=== PATIENT | female | born 1955 | race Caucasian/White ===

== ENCOUNTER 2017-01-27 08:47 | Inpatient (IN) | payer BC, OTHER ==
[2017-01-16 15:04] VITALS: BMI 46.0
--- NOTE | 2017-01-16 15:51 | PAT Medication Instructions ---
Service Date Jan 16, 2017. Current Home Medication List Acetaminophen (Tylenol), 325 MG PO Q6 PRN for Pain Calcium (Calcium), 500 MG PO QPM Cholecalciferol (Vitamin D3), 1 TAB PO BID Fexofenadine-Pseudoephedrine (Sondra-D 12 Hour Allergy), 1 TAB PO HS Glucosamine Sulfate (Glucosamine), Unknown Dose PO BID Hydrochlorothiazide (Hydrochlorothiazide), 12.5 MG PO QAM Multivitamin (Multivitamin), 1 TAB PO QAM Omeprazole (Prilosec), 20 PO QAM Probiotic Product (Acidophilus), 1 CAP PO BID Ranitidine Hcl (Zantac 150 Maximum Streng), 1 TAB PO BID Vitamin B Complex (Vitamin B Complex), 1 TAB PO QAM [Fiber Capsule ], 1 DOSE PO BID [Potassium ], 1 CAP PO BID Medication Instructions For Your Scheduled Surgery - Hold the following medications from tomorrow until after surgery: Glucosamine Sulfate (Glucosamine), Unknown Dose PO BID - Hold the following medications the morning of surgery: Cholecalciferol (Vitamin D3), 1 TAB PO BID [Fiber Capsule ], 1 DOSE PO BID [Potassium ], 1 CAP PO BID Hydrochlorothiazide (Hydrochlorothiazide), 12.5 MG PO QAM Probiotic Product (Acidophilus), 1 CAP PO BID Multivitamin (Multivitamin), 1 TAB PO QAM Vitamin B Complex (Vitamin B Complex), 1 TAB PO QAM - Take the following medications the morning of surgery with a sip of water: Omeprazole (Prilosec), 20 PO QAM Ranitidine Hcl (Zantac 150 Maximum Streng), 1 TAB PO BID Acetaminophen (Tylenol), 325 MG PO Q6 PRN for Pain (if needed up to 4 hours before surgery) - Take the following medications as scheduled the night before surgery: Calcium (Calcium), 500 MG PO QPM Cholecalciferol (Vitamin D3), 1 TAB PO BID Fexofenadine-Pseudoephedrine (Sondra-D 12 Hour Allergy), 1 TAB PO HS [Fiber Capsule ], 1 DOSE PO BID [Potassium ], 1 CAP PO BID Ranitidine Hcl (Zantac 150 Maximum Streng), 1 TAB PO BID Probiotic Product (Acidophilus), 1 CAP PO BID Acetaminophen (Tylenol), 325 MG PO Q6 PRN for Pain If you have any questions please call us at [phone] or [phone] or [phone]
[2017-01-16 16:57] LABS: BASO % 0.3 %; BASO ABS # 0.03 K/uL (0-0.2); COMPLETE YES; EOS % 1.9 %; HEMATOCRIT 38.3 % (37-47); IG% 0.3 %; LYMPH % 18.6 %; LYMPH ABS # 2.17 K/uL (1.2-3.4); MEAN CELL VOLUME 80.5 fL (80-100); MEAN CORPUSCULAR HEMOGLOBIN 25.8 pg (25-34); MEAN CORPUSCULAR HGB CONC 32.1 g/dl (32-36); MEAN PLATELET VOLUME 11.8 fL (7.4-10.4); NEUT % 70.9 %; PLATELET COUNT 290 K/uL (130-400); RED BLOOD COUNT 4.76 M/uL (4.2-5.4); WHITE BLOOD COUNT 11.68 K/uL (4.8-10.8)
[2017-01-16 17:04] LABS: BUN/CREATININE RATIO 12.8 (10-20); CALCIUM 8.5 mg/dl (8.5-10.1); CREATININE 0.89 mg/dl (0.60-1.20); POTASSIUM 3.5 mmol/L (3.5-5.1)
[~2017-01-27] VITALS: Ht 175.3 cm; Wt 142.1 kg
[~2017-01-27 08:47] MED LIST: ACET-1311 PO; CALC1CAP24 PO; CEFAZOLIN 3000 MG/65 ML D5W 50 ML IV SCH; CHOL1000 PO; FEXO5TAB2 PO; FIBER CAPSULE PO; GLUC10007 PO; HYDR25TA5 PO; LACTATED RINGER'S 1000ML 1,000 ML IV SCH; MULT-506 PO; OMEP20CA59 PO; POTASSIUM PO; PROB1CAP54 PO; RANITAB6 PO; VITBC PO
[2017-01-27] MEDS ORDERED: LIDOCAINE HCL 2% 2 ML VIAL (20MG/ML) ONE (09:50)
[2017-01-27] MEDS ORDERED: GLYCOPYRROLATE INJ 0.2 MG/ML VIAL ONE (09:50)
[2017-01-27] MEDS ORDERED: DEXAMETHASONE SOD INJ 4 MG/ML VIAL ONE ×2 (09:50→14:35)
[2017-01-27] MEDS ORDERED: SUCCINYLCHOLINE CHLORIDE 20 MG/ML 10 ML VIAL IV ONE (09:50)
[2017-01-27] MEDS ORDERED: EpHEDrine SULFATE INJ 50 MG/ML AMP ONE (09:50)
[2017-01-27] MEDS ORDERED: NEOSTIGMINE METHYLSULFATE 5 MG/5 ML SYR ONE (09:50)
[2017-01-27] MEDS ORDERED: PROPOFOL IV EMULSION 10 MG/ML 20 ML VIAL IV ONE (09:50)
[2017-01-27] MEDS ORDERED: ONDANSETRON INJ 2 MG/ML 2 ML VIAL ONE ×2 (09:50→14:35)
[2017-01-27] MEDS ORDERED: PHENYLEPHRINE HCL INJ 10 MG/ML VIAL ONE (09:50)
[2017-01-27] MEDS ORDERED: MIDAZOLAM HCL 1 MG/ML 2ML VIAL ONE (09:51)
[2017-01-27] MEDS ORDERED: FENTANYL CITRATE INJ 50 MCG/1 ML 2 ML VIAL ONE ×3 (09:51→13:21)
[2017-01-27 09:54] VITALS: BP 152/80; PULSE 71; TEMP 36.9; O2SAT 99; Ht 175.3 cm; Wt 142.1 kg
[2017-01-27] MEDS ORDERED: FENTANYL CITRATE INJ 50 MCG/1 ML 2 ML VIAL IV PRN (10:00)
[2017-01-27] MEDS ORDERED: PROMETHAZINE HCL INJ 12.5 MG in SODIUM CHLORIDE 0.9% 50ML 50 ML IV PRN (10:00)
[2017-01-27] MEDS ORDERED: ATROPINE SULFATE 0.1 MG/ML 5ML SYR IV PRN (10:00)
[2017-01-27] MEDS ORDERED: ONDANSETRON INJ 2 MG/ML 2 ML VIAL IV PRN ×2 (10:00→14:45)
[2017-01-27] MEDS ORDERED: LABETALOL HCL IV 5 MG/ML 20ML IV PRN (10:00)
[2017-01-27] MEDS ORDERED: HYDROmorphone INJ 1 MG/ML SYR IV PRN (10:00)
[2017-01-27] MEDS ORDERED: PHENYLEPHRINE 100MCG/ML 5ML SYR IV PRN (10:00)
[2017-01-27] MEDS ORDERED: EpHEDrine SULFATE INJ 50 MG/ML AMP IV PRN (10:00)
--- NOTE | 2017-01-27 10:23 | History & Physical Bridge Note ---
H&P Re-Evaluation Bridge Note: I have examined the patient, reviewed the History & Physical and in the interval since the performance of the History & Physical I have noted the following changes of clinical significance: No changes noted
[2017-01-27 10:37] LABS: BASO % 0.4 %; BASO ABS # 0.03 K/uL (0-0.2); EOS % 2.6 %; HEMATOCRIT 38.6 % (37-47); IG% 0.2 %; LYMPH ABS # 2.01 K/uL (1.2-3.4); MEAN CELL VOLUME 80.6 fL (80-100); MEAN CORPUSCULAR HEMOGLOBIN 25.7 pg (25-34); MEAN PLATELET VOLUME 11.3 fL (7.4-10.4); MONO % 8.5 %; NEUT % 64.3 %; PLATELET COUNT 263 K/uL (130-400); RED BLOOD COUNT 4.79 M/uL (4.2-5.4); WHITE BLOOD COUNT 8.39 K/uL (4.8-10.8)
[2017-01-27] MEDS: LACTATED RINGER'S 1000ML 1,000 ML IV SCH ×2 (10:39→17:36)
[2017-01-27 10:53] LABS: COMPLETE YES; MEAN CORPUSCULAR HGB CONC 31.9 g/dl (32-36)
[2017-01-27] MEDS ORDERED: METHYLENE BLUE 0.5% 10 ML VIAL ONE (10:55)
[2017-01-27] MEDS ORDERED: MINERAL OIL LIGHT 10 ML BTL ONE (10:55)
[2017-01-27] MEDS ORDERED: BUPIVACAINE 0.5 % 5 MG/1 ML MPF 30ML VIAL ONE (10:55)
[2017-01-27] MEDS ORDERED: HYDROmorphone INJ 2 MG/ML SYR/VIAL ONE (11:44)
[2017-01-27] MEDS ORDERED: KETOROLAC TROMETHAMINE 30 MG/ML VIAL ONE (14:35)
--- NOTE | 2017-01-27 14:43 | [facility] Post Operative Brief Note ---
Immediate Operative Summary Operative Date Jan 27, 2017. Pre-Operative Diagnosis Post Menopausal bleeding, Complex hyperplasia with atypia Post-Operative Diagnosis Post Menopausal bleeding, Complex hyperplasia with atypia, abdominal wall lesion Procedure(s) Performed Total Laparoscopic Hysterectomy with Bilateral Salpingo-Oophorectomy; Cystoscopy, removal of abdominal skin lesion Surgeon Dr. Kevin Aguilera [place] [employer] Operator Surgeon(s) Dr. Lazaro Krishnan Estimated Blood Loss 25mL Findings On laparoscopic exam uterus, bilateral tubes and ovaries grossly normal. No intraabdominal or pelvic pathology noted. The cervix, uterus and bilateral tubes and ovaries were successfully removed laparoscopically. Once the specimen was removed from the vagina anesthesia was instructed to push methylene blue. The vaginal cuff was closed and a cystoscopy was performed. Upon cystoscopic exam the bladder was intact and bilateral ureteral openings spilled blue tinged urine indicating bilateral ureters were intact. There was a condylomatous lesion on the lower abdomen which was excised with an elliptical incision and sent to pathology. Patient tolerated the surgery well and was sent to recovery with stable vital signs. Fluids (cc crystalloids) 1700 Specimens A: Uterus, Cervix, Bilateral Fallopian Tubes, Bilateral Ovaries B: Abdominal skin Lesion Drains Batres to gravity Anesthesia General Complication(s) None Disposition Recovery Room / PACU
[2017-01-27] MEDS ORDERED: MAGNESIUM HYDROXIDE SUSP 30 ML UDC PO PRN (14:45)
[2017-01-27] MEDS ORDERED: BISACODYL 10 MG SUPP PR PRN (14:45)
[2017-01-27] MEDS ORDERED: IBUPROFEN 600 MG TAB PO PRN (14:45)
[2017-01-27] MEDS ORDERED: MEPERIDINE HCL 50 MG/ML CARP IV PRN ×2 (14:45)
[2017-01-27] MEDS ORDERED: SENNA 8.6 MG TAB PO PRN (14:45)
[2017-01-27] MEDS ORDERED: KETOROLAC TROMETHAMINE 30 MG/ML VIAL IV. PRN (14:45)
--- NOTE | 2017-01-27 16:18 | Anesthesiology Progress Note ---
Anesthesia Post Op Note Date & Time Jan 27, 2017 at 16:18 Vital Signs Pain Intensity: 0 Vital Signs Past 12 Hours Date Time Temp Pulse Resp B/P (MAP) Pulse Ox O2 Delivery O2 Flow Rate FiO2 01/27/17 16:06 145/95 01/27/17 16:04 67 14 01/27/17 16:04 65 14 100 01/27/17 16:03 36.4 76 16 145/95 100 Nasal Cannula 2 01/27/17 16:01 135/77 01/27/17 15:59 71 14 01/27/17 15:59 71 14 100 01/27/17 15:56 138/85 01/27/17 15:54 77 14 94 01/27/17 15:54 77 14 01/27/17 15:53 81 15 01/27/17 15:53 81 15 90 01/27/17 15:51 158/94 01/27/17 15:48 75 15 96 01/27/17 15:48 75 15 01/27/17 15:46 154/79 01/27/17 15:43 70 12 95 01/27/17 15:43 69 12 01/27/17 15:41 155/84 01/27/17 15:38 86 17 01/27/17 15:38 91 17 96 01/27/17 15:36 138/101 01/27/17 15:33 70 15 96 01/27/17 15:33 71 15 01/27/17 15:32 73 17 01/27/17 15:32 73 17 97 01/27/17 15:31 141/90 01/27/17 15:27 73 16 96 01/27/17 15:27 73 16 01/27/17 15:26 138/98 01/27/17 15:22 78 13 97 01/27/17 15:22 78 13 01/27/17 15:21 138/103 01/27/17 15:18 142/70 01/27/17 15:17 77 16 01/27/17 15:17 36.3 84 16 142/70 (97) 96 Mask 10 01/27/17 15:17 77 16 96 01/27/17 09:54 36.9 71 18 152/80 (104) 99 Room Air Notes Mental Status: alert / awake / arousable, participated in evaluation Pt Amnestic to Procedure: Yes Nausea / Vomiting: adequately controlled Pain: adequately controlled Airway Patency, RR, SpO2: stable & adequate BP & HR: stable & adequate Hydration State: stable & adequate Anesthetic Complications: no major complications apparent
[2017-01-27 16:45] VITALS: BP 138/78; PULSE 60; TEMP 36.5; O2SAT 100
[2017-01-27 17:15] VITALS: BP 130/67; PULSE 73; TEMP 36.3; O2SAT 94
[2017-01-27 17:45] VITALS: BP 131/79; PULSE 69; TEMP 36.3; O2SAT 96
[2017-01-27] MEDS ORDERED: LACTATED RINGER'S 1000ML 1,000 ML IV SCH (17:45)
[2017-01-27 18:45] VITALS: BP 134/84; PULSE 65; TEMP 36.4; O2SAT 97
[2017-01-27 19:32] LABS: HEMATOCRIT 39.5 % (37-47)
[2017-01-27 19:35] VITALS: BP 143/66; PULSE 71; TEMP 36.3; O2SAT 97
--- NOTE | 2017-01-27 21:08 | OPERATIVE REPORT ---
DATE OF OPERATION: 01/27/2017 PREOPERATIVE DIAGNOSES: 1. Postmenopausal bleeding. 2. Complex hyperplasia with atypia. POSTOPERATIVE DIAGNOSES: 1. Postmenopausal bleeding. 2. Complex hyperplasia with atypia. 3. Abdominal wall lesion. OPERATIVE PROCEDURE: Total laparoscopic hysterectomy with bilateral salpingo-oophorectomy, cystoscopy and removal of abdominal skin lesion. SURGEON: Dr. Aguilera. AWNING MAKER AND INSTALLER: Dr. Krishnan. ANESTHESIA: General. ESTIMATED BLOOD LOSS: 25 mL. IV FLUIDS: 1700 mL crystalloids. URINE OUTPUT: 200 mL clear yellow urine. SPECIMENS: Uterus, cervix, bilateral fallopian tubes and ovaries and abdominal skin lesion. DRAINS: Batres to gravity. COMPLICATIONS: None. DISPOSITION: To recovery room. OPERATIVE FINDINGS: On laparoscopic exam, uterus, bilateral tubes and ovaries were grossly normal. There was no intra-abdominal or pelvic pathology grossly seen. The cervix, uterus and bilateral tubes and ovaries were successfully removed laparoscopically with specimen was removed from the vagina. Anesthesia was instructed to push methylene blue. The vaginal cuff was then closed and a cystoscopy was then performed. Upon cystoscopic exam, the bladder was intact with no suture noted as well. Bilateral ureteral openings expelled blue-tinged urine, indicating bilateral ureters were intact. Once the hysterectomy was completed, there was a condylomatous lesion on the lower abdomen, which was excised with an elliptical incision and sent to pathology. The patient tolerated the procedure well and was sent to recovery with stable vital signs. OPERATIVE PROCEDURE IN DETAIL: The patient was taken to the operating room where general anesthesia was administered. Once anesthesia was found to be adequate, the patient was placed in dorsal lithotomy position and was prepped and draped in a manner appropriate for the procedure. A weighted speculum was then placed into the vagina and the anterior lip of the cervix was grasped with a single tooth tenaculum. A medium VCare uterine manipulator was then placed within the uterus in an anteverted fashion and was suture ligated to the cervix at the 12 o'clock and 6 o'clock position with 0 Vicryl suture. Once to the VCare in place, the weighted speculum and single tooth tenaculum were removed from the vagina. A sterile Batres catheter was placed within the bladder and remained indwelling throughout the entire procedure. The patient was then readied for the laparoscopic portion of the procedure. Attention was directed towards the abdomen where 0.5% Marcaine was injected below the umbilicus and an 11-mm skin incision was made subumbilically in a horizontal fashion. A Veress needle was then placed within the abdomen. Normal saline was injected with no fecal content aspirated. Pneumoperitoneum was then created. The Veress needle was then removed and an 11 mm trocar was placed within the abdomen under direct laparoscopic visualization. The patient was then placed in a Trendelenburg position. The bowel was displaced superiorly away from the pelvis. A second 11 mm skin incision was made on the left side of the abdomen and a second 11 mm trocar was placed within the abdomen under direct laparoscopic visualization. A third 11 mm skin incision was made on the right side of the abdomen and a third 11 mm trocar was placed within the abdomen under direct laparoscopic visualization. A thorough examination of the abdomen and pelvis was then performed. Attention was directed towards the right adnexa where the infundibulopelvic ligament was cauterized and transected, continued inferiorly through to the broad ligament and round ligament, cauterized and transected as we continued inferiorly. The anterior leaf of the broad ligament was and the bladder flap created on the right side of the lower uterine segment. Attention was then directed towards the left adnexa which likewise the left infundibulopelvic ligament was cauterized and transected, continued inferiorly through the broad ligament and round ligament. The broad ligament was and the anterior leaf of the broad ligament was cauterized and transected across the lower uterine segment, completing the bladder flap. The bladder was pushed away from the lower uterine segment. The ascending uterine arteries were cauterized and transected bilaterally, continued inferiorly through the cardinal uterosacral complex. Once we were at the level of the VCare manipulator, the specimen was amputated from the vagina in a circumferential fashion with the LigaSure. The uterus, cervix and bilateral fallopian tubes and ovaries were then removed through the vagina. A sterile glove was then placed in the vagina to maintain the pneumoperitoneum. The entire pelvis was then copiously irrigated with warm saline solution. Anesthesia was instructed to push methylene blue. The vaginal cuff was then closed with 0 Polysorb suture with the EndoStitch in a continuous locking fashion. The peritoneum was then reapproximated with 0 Polysorb suture in continuous running fashion. The entire pelvis was again noted to be hemostatic. At this point, all instruments were then removed from the abdomen and as much CO2 gas was allowed to percolate through open cannulas. The patient was then ready for the cystoscopy. Attention was directed towards the perineum where the Batres catheter was removed. The cystoscope was introduced into the bladder. A thorough examination was then performed noting no injury to the bladder wall. It was noted that Bilateral ureteral openings expelled blue-tinged urine, indicating bilateral ureters were intact. At this point, the cystoscope was removed and a second sterile Batres catheter was placed within the bladder. At this point, the procedure was found to be complete. The cannulas were then removed from the abdomen. The fascial all 3 skin incisions were closed with 0 Vicryl suture in an interrupted [id number] fashion. All 3 incisions were then closed with 4-0 Monocryl in a subcuticular fashion. Attention was then directed towards the lower abdominal skin lesion which was grasped with pickups and an elliptical incision was made around the lesion. The lesion was then removed with scissors and sent to pathology. The subcutaneous tissue was reapproximated with 2-0 Vicryl suture in a continuous running fashion. The skin was then closed with 4-0 Monocryl in a subcuticular fashion. Excellent hemostasis was noted. The sterile glove was removed from the vagina. All sponge and instrument counts were found to be correct x2. The patient tolerated the procedure well and was sent to recovery with stable vital signs. I attest to the content of the Intraoperative Record and any orders documented therein. Any exception s are noted below.
[2017-01-27] MEDS: RANITIDINE HCL 150 MG TAB PO SCH (21:25)
[2017-01-28 00:10] VITALS: BP 120/62; PULSE 89; TEMP 36.7; O2SAT 95
[2017-01-28] MEDS: OXYCODONE/ACETAMINOPHEN 5-325 TAB PO PRN ×2 (01:25→07:32)
[2017-01-28 04:15] VITALS: BP 110/56; PULSE 85; TEMP 36.9; O2SAT 95
[2017-01-28 07:05] LABS: HEMATOCRIT 36.2 % (37-47); MEAN CORPUSCULAR HEMOGLOBIN 26.2 pg (25-34); MEAN CORPUSCULAR HGB CONC 32.3 g/dl (32-36); MEAN PLATELET VOLUME 11.9 fL (7.4-10.4); PLATELET COUNT 276 K/uL (130-400); RED BLOOD COUNT 4.47 M/uL (4.2-5.4); WHITE BLOOD COUNT 22.65 K/uL (4.8-10.8)
[2017-01-28 07:19] LABS: BUN/CREATININE RATIO 12.5 (10-20); CALCIUM 8.4 mg/dl (8.5-10.1); CREATININE 0.79 mg/dl (0.60-1.20); POTASSIUM 4.1 mmol/L (3.5-5.1)
[2017-01-28 07:23] VITALS: BP 122/57; PULSE 80; TEMP 36.9; O2SAT 96
[2017-01-28 08:07] LABS: COMPLETE YES; IG% 0.5 %; LYMPH % 5.2 %; LYMPH ABS # 1.18 K/uL (1.2-3.4); MONO % 6.5 %; NEUT % 87.8 %
[2017-01-28] MEDS: RANITIDINE HCL 150 MG TAB PO SCH (08:39)
[2017-01-28] MEDS ORDERED: FEXOFENADINE 60MG/PSEUDOEPHEDRINE 120MG TAB PO SCH (09:00)
[2017-01-28] MEDS ORDERED: HYDROCHLOROTHIAZIDE 25 MG TAB PO SCH (09:00)
[2017-01-28] MEDS ORDERED: MULTIVITAMIN TAB PO SCH (09:00)
[2017-01-28] MEDS ORDERED: PANTOprazole SOD 40 MG TAB PO SCH (09:00)
[2017-01-28] MEDS ORDERED: VITAMIN B COMPLEX TAB PO SCH (09:00)
[2017-01-28] MEDS ORDERED: OXYC-57 PO (10:20)
[2017-01-28] MEDS ORDERED: MTR600X PO (10:20)
--- NOTE | 2017-01-28 10:22 | Discharge Instructions ---
Discharge Instructions Date of Service Jan 28, 2017. Admission Reason for Admission: Complex Hyperplasia W/Atypia, Post-Menopausal Blee Discharge Discharge Diagnosis / Problem: atypical hyperplasia Discharge Goals Goal(s): Routine recovery after surgery Activity Recommendations Activity Limitations: as noted below Lifting Limitations: no more than 10 pounds Exercise/Sports Limitations: until after follow-up appointment May Resume Sexual Activity: after follow-up appointment Shower/Bathe: no limitations Driving or Machine Use: resume 3 days after discharge . Instructions / Follow-Up Instructions / Follow-Up ACTIVITY RECOMMENDATIONS: * Avoid tampons, douching, hot tubs, pools, and intercourse until bleeding has stopped. * May shower as usual. * No strenuous activity for 24-48 hours. After 24-48 hours, you can do anything you feel like doing (driving and sports are okay). RETURN TO SCHOOL/WORK: * You may return to school or work after 24 hours unless specified by your physician. DIET: * Resume previous diet. MEDICATIONS: Resume previous medications unless instructed otherwise by your surgeon. Ibuprofen 200mg 2-3 tablets every 4-6 hours as needed --OR-- Aleve 2 tablets every 8-12 hours as needed for post-operative discomfort Medications are over the counter. Tylenol may be used if above medications are contraindicated or not preferred. Medication should be taken with food or milk. do not take on an empty stomach. SPECIAL CARE INSTRUCTIONS: * Check temperature twice daily for one week. Report any elevation over 101 degrees. * Call office if you experience increased pelvic pain or discomfort not relieved by pain medicine, if you have foul smelling vaginal discharge, if you have bleeding that is heavier than a normal menstrual flow. If you are changing a maxi pad every 1- 2 hours, this is too heavy. vaginal spotting is normal for 1-2 weeks. FOLLOW UP VISIT: Call your doctor's office for a post-operative visit. Current Hospital Diet Patient's current hospital diet: Regular Diet Discharge Diet Recommended Diet: Regular Diet Fluid Restriction: None Procedures Procedures Performed: Total Laparoscopic Hysterectomy with Bilateral Salpingo-Oophorectomy; Cystoscopy, removal of abdominal skin lesion Pending Studies Studies pending at discharge: no Medical Emergencies . Who to Call and When: Medical Emergencies: If at any time you feel your situation is an emergency, please call 911 immediately. . Non-Emergent Contact Non-Emergency issues call your: Primary Care Provider . . "Provider Documentation" section prepared by Krishan Oliva. . VTE Core Measure Inpt VTE Proph given/why not?: Treatment not indicated
--- NOTE | 2017-01-28 10:54 | Surgery Progress Note ---
Surgery Progress Note Date of Service Jan 28, 2017. Subjective Post OP Day: 1 + feeling well, + ambulating, + pain controlled, + diet Objective Vital Signs: Date Time Temp Pulse Resp B/P (MAP) Pulse Ox O2 Delivery O2 Flow Rate FiO2 01/28/17 07:23 36.9 80 20 122/57 (78) 96 Room Air 01/28/17 04:15 36.9 85 16 110/56 (74) 95 Room Air 01/28/17 00:10 36.7 89 18 120/62 (81) 95 Room Air 01/28/17 00:10 95 Room Air 01/27/17 19:35 36.3 71 20 143/66 (91) 97 Room Air 01/27/17 18:45 36.4 65 16 134/84 (101) 97 Room Air 01/27/17 17:45 36.3 69 18 131/79 (96) 96 Room Air 01/27/17 17:15 36.3 73 18 130/67 (88) 94 Room Air 01/27/17 16:45 36.5 60 16 138/78 (98) 100 Nasal Cannula 2.0 01/27/17 16:45 100 Nasal Cannula 2.0 01/27/17 16:27 76 13 99 01/27/17 16:27 75 13 01/27/17 16:26 125/90 01/27/17 16:22 58 17 01/27/17 16:22 59 17 147/65 100 01/27/17 16:17 54 19 99 01/27/17 16:17 59 19 01/27/17 16:16 128/67 01/27/17 16:12 57 14 01/27/17 16:12 55 14 100 01/27/17 16:11 139/75 01/27/17 16:09 150/89 01/27/17 16:07 66 16 01/27/17 16:07 65 16 100 01/27/17 16:06 145/95 01/27/17 16:04 67 14 01/27/17 16:04 65 14 100 01/27/17 16:03 36.4 76 16 145/95 100 Nasal Cannula 2 01/27/17 16:01 135/77 01/27/17 15:59 71 14 01/27/17 15:59 71 14 100 01/27/17 15:56 138/85 01/27/17 15:54 77 14 94 01/27/17 15:54 77 14 01/27/17 15:53 81 15 01/27/17 15:53 81 15 90 01/27/17 15:51 158/94 01/27/17 15:48 75 15 96 01/27/17 15:48 75 15 01/27/17 15:46 154/79 01/27/17 15:43 70 12 95 01/27/17 15:43 69 12 01/27/17 15:41 155/84 01/27/17 15:38 86 17 01/27/17 15:38 91 17 96 01/27/17 15:36 138/101 01/27/17 15:33 70 15 96 01/27/17 15:33 71 15 01/27/17 15:32 73 17 01/27/17 15:32 73 17 97 01/27/17 15:31 141/90 01/27/17 15:27 73 16 96 01/27/17 15:27 73 16 01/27/17 15:26 138/98 01/27/17 15:22 78 13 97 01/27/17 15:22 78 13 01/27/17 15:21 138/103 01/27/17 15:18 142/70 01/27/17 15:17 77 16 01/27/17 15:17 36.3 84 16 142/70 (97) 96 Mask 10 01/27/17 15:17 77 16 96 Abdomen: non tender, non distended, soft Incision(s): clean, dry, intact Extremities: non-tender, normal inspection, no calf tenderness, + pedal edema Laboratory Results: Results Past 24 Hours Test 01/27/17 19:14 01/28/17 06:24 Range/Units Hemoglobin 12.6 11.7 12.0-16.0 g/dL Hematocrit 39.5 36.2 37-47 % White Blood Count 22.65 4.8-10.8 K/uL Red Blood Count 4.47 4.2-5.4 M/uL Mean Corpuscular Volume 81.0 80-100 fL Mean Corpuscular Hemoglobin 26.2 25-34 pg Mean Corpuscular Hemoglobin Concent 32.3 32-36 g/dl Platelet Count 276 130-400 K/uL Mean Platelet Volume 11.9 7.4-10.4 fL Neutrophils (%) (Auto) 87.8 % Lymphocytes (%) (Auto) 5.2 % Monocytes (%) (Auto) 6.5 % Eosinophils (%) (Auto) 0.0 % Basophils (%) (Auto) 0.0 % Neutrophils # (Auto) 19.89 1.4-6.5 K/uL Lymphocytes # (Auto) 1.18 1.2-3.4 K/uL Monocytes # (Auto) 1.47 0.11-0.59 K/uL Eosinophils # (Auto) 0.00 0-0.5 K/uL Basophils # (Auto) 0.00 0-0.2 K/uL RDW Standard Deviation 44.3 36.4-46.3 fL RDW Coefficient of Variation 15.2 11.5-14.5 % Immature Granulocyte % (Auto) 0.5 % Immature Granulocyte # (Auto) 0.11 0.00-0.02 K/uL Sodium Level 140 136-145 mmol/L Potassium Level 4.1 3.5-5.1 mmol/L Chloride Level 106 98-107 mmol/L Carbon Dioxide Level 29 21-32 mmol/L Anion Gap 6.0 3-11 mmol/L Blood Urea Nitrogen 10 7-18 mg/dl Creatinine 0.79 0.60-1.20 mg/dl Est Creatinine Clear Calc Drug Dose 112.6 ml/min Estimated GFR () 93.0 Estimated GFR (Non- 80.2 BUN/Creatinine Ratio 12.5 10-20 Random Glucose 101 70-99 mg/dl Calcium Level 8.4 8.5-10.1 mg/dl Assessment & Plan regular diet discharged
[2017-01-28 10:57] VITALS: BP 122/57; PULSE 85; TEMP 36.9; O2SAT 96
--- NOTE | 2017-02-08 11:37 | Discharge Summary ---
Discharge Summary Date of Service Feb 08, 2017. Discharge Summary Admission Date: Jan 27, 2017 at 10:00 Discharge Date: Jan 28, 2017 Discharge Disposition: Home Principal Diagnosis: Postmenopausal bleeding, Complex hyperplasia with atypia Procedures: Total laparoscopic hysterectomy with BSO, cystoscopy Medication Reconciliation New Medications: Ibuprofen (Ibuprofen) 600 Mg Tab 600 MG PO Q4H PRN for Pain, ZUNIGA, Cramping, Edema, #30 TAB 1 Refill Oxycodone/Acetaminophen 5MG/325MG (Percocet 5MG/325MG) Tab 1-2 TAB PO Q4H PRN for ZUNIGA, Cramping, edema, #20 TAB 0 Refills PAIN Continued Medications: Acetaminophen (Tylenol) 325 Mg Tab 325 MG PO Q6 PRN for Pain, TAB Calcium (Calcium) 250 Mg Cap 500 MG PO QPM Cholecalciferol (Vitamin D3) 1,000 Unit Tab 1 TAB PO BID for 90 Days, #180 TAB 3 Refills Fexofenadine-Pseudoephedrine (Sondra-D 12 Hour Allergy) 1 Tab Tab 1 TAB PO HS for 10 Days, #20 TAB Glucosamine Sulfate (Glucosamine) Unknown Strength Tab Unknown Dose PO BID, TAB PT REPORTS MED LABEL STATES TRIPLE STRENGTH Hydrochlorothiazide (Hydrochlorothiazide) 25 Mg Tab 12.5 MG PO QAM Multivitamin (Multivitamin) Tab 1 TAB PO QAM, TAB Omeprazole (Prilosec) 20 Mg Capcr 20 MG PO QAM, CAP Probiotic Product (Acidophilus) 1 Cap Cap 1 CAP PO BID Ranitidine Hcl (Zantac 150 Maximum Streng) 150 Mg Tab 1 TAB PO BID for 30 Days, #60 TAB 2 Refills Vitamin B Complex (Vitamin B Complex) 1 Tab Tab 1 TAB PO QAM [Fiber Capsule ] () 1 DOSE PO BID [Potassium ] () 1 CAP PO BID PT REPORTS DOSE IS 99 Admission Information HPI (per Admitting provider): Patient is a 62 y/o female with a history of postmenopausal bleeding with a follow up endometrial biopsy that showed complex hyperplasia with atypia. After counseling she was in agreement to proceed with a [facility] with BSO and cystoscopy. Informed consent signed. Physical Exam (per Admitting): General Appearance: WD/WN, no apparent distress Respiratory/Chest: chest non-tender, lungs clear Cardiovascular: regular rate, rhythm Abdomen/GI: normal bowel sounds, soft Genitourinary - Female: external genitalia normal, normal pelvic exam Extremities/Musculoskelatal: normal inspection, no calf tenderness, normal range of motion Neurologic/Psych: alert, oriented x 3 Skin: normal color, warm/dry, no rash Hospital Course Patient underwent her scheduled TLH with BSO and cystoscopy on the day of admission without complications. Her postoperative recovery was uneventful. Her chandler catheter was removed on morning of POD # 1. Her diet and activity were advanced as tolerated. Her incisions remained c/d/i. She was discharged home on POD # 1 with discharge instructions. Total time spent on discharge = 30 mins This includes examination of the patient, discharge planning, medication reconciliation, and communication with other providers. Discharge Instructions POST OPERATIVE: BOWEL FUNCTION/MEDICATIONS: 1. Constipation pain and discomfort are the most common complaints 5-7 days after surgery. Points 2-6 address the things that can help. 2. Chewing gum can help stimulate the gut and help improve digestion and motility. 3. Milk of Magnesia 1-2 times per day until return of bowel function. 4. Colace is a stool softener that helps. Taking this 2-3 times per day until bowel function returns to normal is highly recommended. 5. Dulcolax is a laxative that may be used if several days have passed without a bowel movement. Alternatively Miralax may be used daily instead. 6. Drink plenty of fluids as this will also reduce constipation. 7. Narcotic pain medications will be prescribed by your physician. They are safe to use and we encourage you to use them. If you are not allergic, ibuprofen will also be prescribed. Many patients will be able to transition off of the narcotic medications to ibuprofen by postoperative day 3. ACTIVITY RECOMMENDATIONS: 1. Get plenty of rest and listen to your body. If you are tired, take a nap. 2. You may shower, but do not take a tub bath until you see your doctor at the 2 week post operative visit. 3. Absolutely NO intercourse and nothing in the vagina until you are examined by your doctor at the 6 week visit. At that visit it will be determined when such activities can be resumed. This can range from 6-12 weeks after your surgery depending on healing time. 4. The main physical activity in the first week should be walking. By the second week you can slowly increase activity. There are no limits on walking up and down stairs. 5. Do not lift more than 5-10 lbs for 4 weeks. Remember the "one-handed rule", i.e. if you can lift something with only one hand it's likely okay. 6. Minimize wave solder offbearer like vacuuming and exercising for 4 weeks. "Overdoing it" can lead to incisions not healing, pain and vaginal bleeding , so again, listen to your body. 7. Driving can be resumed when you feel able. Do not drive within 24 hours of taking a narcotic medication. EXPECTATIONS: 1. Vaginal spotting, bleeding and discharge are common after surgery. There may even be an odor to the discharge which is often related to sutures used in the vagina. If you experience heavy vaginal bleeding, call the office number day or night [phone]. 2. Bladder discomfort is common after surgery from the catheter. This usually resolves in 1-2 weeks. 3. By the end of the 3rd or 4th week you should be feeling much better. It may take up to 6 weeks for your energy levels to return to normal. 4. Narcotic medications have side effects such as: dizziness, headache, nausea and/or vomiting. If you suspect your pain medication is causing problems, call our office and we may be able to prescribe an alternate medication. 5. The skin incisions are often covered with a liquid bandage. This will gradually peel off over time. CALL THE OFFICE IF YOU HAVE ANY OF THE FOLLOWIN. Temperature of 101 degrees or higher. 2. Severe abdominal or pelvic pain not relieved by pain medication. 3. Persistent nausea or vomiting. 4. Increased pain with urination or difficulty urinating. 5. Bright red bleeding that soaks more than 1 pad per hour. CONTACT PHONE NUMBERS: Main Office: [phone] FOLLOW-UP: Post-Operative Appointments: * Individual instructions will have been given about the timing of your first examination, but this is usually at the end of the second week home. * You will need to call the office at [phone] soon after discharge to make the appointment for your post-op check-up if it has not already been scheduled. * Additional information regarding activity, sexual intercourse and when to return to work will be given at this appointment. WE WISH YOU A SPEEDY RECOVERY!
== END 2017-01-28 11:35 | disposition home or self-care (01) | DRG 743 ==
LOC: C.ACU 08:47 → C.MS4N 10:00 → ENRESERV 16:16
PROVIDERS: ADMIT Obstetrics & Gynecology; ATTEND Obstetrics & Gynecology
PROC: 0HB7XZX Excision of Abdomen Skin, External Approach, Diagnostic (ICD-10-PCS; principal; 2017-01-27 10:30)
PROC: 0TJB8ZZ Inspection of Bladder, Via Natural or Artificial Opening Endoscopic (ICD-10-PCS; principal; 2017-01-27 10:30)
PROC: 0UTC8ZZ Resection of Cervix, Via Natural or Artificial Opening Endoscopic (ICD-10-PCS; principal; 2017-01-27 10:30)
PROC: 0UT2FZZ Resection of Bilateral Ovaries, Via Natural or Artificial Opening With Percutaneous Endoscopic Assistance (ICD-10-PCS; principal; 2017-01-27 10:30)
PROC: 0UT9FZZ Resection of Uterus, Via Natural or Artificial Opening With Percutaneous Endoscopic Assistance (ICD-10-PCS; principal; 2017-01-27 10:30)
PROC: 0UT7FZZ Resection of Bilateral Fallopian Tubes, Via Natural or Artificial Opening With Percutaneous Endoscopic Assistance (ICD-10-PCS; principal; 2017-01-27 10:30)
DX: N85.02 Endometrial intraepithelial neoplasia [EIN] (principal); N95.0 Postmenopausal bleeding; F32.9 Major depressive disorder, single episode, unspecified; K21.9 Gastro-esophageal reflux disease without esophagitis; Z83.3 Family history of diabetes mellitus; Z88.2 Allergy status to sulfonamides

== ENCOUNTER → 2017-03-11 | Outpatient (CLI) | payer BC ==
[~2017-03-11] MED LIST changes: -CEFAZOLIN 3000 MG/65 ML D5W 50 ML IV SCH; -LACTATED RINGER'S 1000ML 1,000 ML IV SCH; +MTR600X PO; +OXYC-57 PO
[2017-03-11 13:21] LABS: BLOOD UREA NITROGEN 7 mg/dl (7-18); BUN/CREATININE RATIO 8.4 (10-20); CALCIUM 8.5 mg/dl (8.5-10.1); CARBON DIOXIDE 33 mmol/L (21-32); CHLORIDE 104 mmol/L (98-107); GLUCOSE 85 mg/dl (70-99); POTASSIUM 3.5 mmol/L (3.5-5.1); SODIUM 141 mmol/L (136-145)
== END | disposition home or self-care (01) ==
LOC: C.LABPVFM 10:10
PROVIDERS: ATTEND Family Medicine
DX: R19.7 Diarrhea, unspecified (principal)

== ENCOUNTER → 2017-03-13 | Outpatient (CLI) | payer BC | END | disposition home or self-care (01) | LOC: C.LAB1850 07:16 | PROVIDERS: ATTEND Family Medicine | DX: R19.7 Diarrhea, unspecified (principal) ==

== ENCOUNTER → 2017-04-13 | Outpatient (CLI) | payer BC | END | disposition home or self-care (01) | LOC: C.LABPVFM 10:13 | PROVIDERS: ATTEND Nurse Practitioner Family | DX: R19.4 Change in bowel habit (principal) ==

== ENCOUNTER → 2017-04-14 | Outpatient (CLI) | payer BC ==
--- NOTE | 2017-04-14 13:31 | DIAGNOSTIC IMAGING REPORT ---
KUB HISTORY: CHANGE IN BOWEL HABITS COMPARISON: None. FINDINGS: The bowel gas pattern is unremarkable. There are no dilated loops of small bowel to suggest an obstruction. No renal calculi. No ureteral calculi. No pneumoperitoneum or pneumatosis. IMPRESSION: Unremarkable bowel gas pattern. No evidence for bowel obstruction. Electronically signed by: Marcos Velez M.D. 04/14/2017 1:30 PM Dictated Date/Time: 04/14/2017 1:27 PM
== END | disposition home or self-care (01) ==
LOC: C.RADPV 12:53
PROVIDERS: ATTEND Nurse Practitioner Family
DX: R19.4 Change in bowel habit (principal)

== ENCOUNTER → 2017-07-31 | Outpatient (CLI) | payer OTHER ==
[2017-07-31 09:50] LABS: ALBUMIN 3.4 gm/dl (3.4-5.0); ALT/SGPT 20 U/L (12-78); BLOOD UREA NITROGEN 11 mg/dl (7-18); CALCIUM 8.5 mg/dl (8.5-10.1); CARBON DIOXIDE 29 mmol/L (21-32); CHOLESTEROL 125 mg/dl (0-200); CREATININE 0.78 mg/dl (0.60-1.20); GLUCOSE 93 mg/dl (70-99); SODIUM 140 mmol/L (136-145)
[2017-07-31 09:53] LABS: ALKALINE PHOSPHATASE 83 U/L (45-117); AST/SGOT 17 U/L (15-37); LDL CHOLESTEROL CALCULATED 63 mg/dl; TOTAL PROTEIN 7.3 gm/dl (6.4-8.2)
== END | disposition home or self-care (01) ==
LOC: C.LAB 06:42
PROVIDERS: ATTEND Nurse Practitioner Family
DX: I10 Essential (primary) hypertension (principal)

== ENCOUNTER → 2017-08-23 | Outpatient (CLI) | payer OTHER ==
--- NOTE | 2017-08-23 18:25 | DIAGNOSTIC IMAGING REPORT ---
ULTRASOUND LEFT LOWER EXTREMITY VENOUS CLINICAL HISTORY: Left leg pain and swelling. COMPARISON STUDY: No priors. TECHNIQUE: Real-time, grayscale, and color Doppler sonography of the deep veins of the left lower extremity was performed from the inguinal crease to the calf. Compression and augmentation were utilized. FINDINGS: There is no sonographic evidence of deep venous thrombosis identified in the left lower extremity. The common femoral, superficial femoral, and popliteal veins are patent and normally compressible. The greater saphenous vein and the profunda femoris vein at the junction with the common femoral vein are clear. The visualized calf veins are patent. IMPRESSION: There is no sonographic evidence of deep venous thrombosis identified in the left lower extremity. Electronically signed by: Hernandez Velez M.D. 08/23/2017 6:24 PM Dictated Date/Time: 08/23/2017 6:24 PM
== END | disposition home or self-care (01) ==
LOC: C.ULTR 17:49
PROVIDERS: ATTEND Family Medicine
DX: L03.116 Cellulitis of left lower limb (principal)

== ENCOUNTER 2019-09-13 11:18 | Observation (INO) ==
[2019-09-13] MEDS ORDERED: FAMOTIDINE 20MG/5ML IV PUSH IV STA (11:33)
[2019-09-13] MEDS ORDERED: ASPIRIN CHEW 324 MG PO STA (11:33)
--- NOTE | 2019-09-13 11:38 | Emergency Department Note ---
Impression & Plan Precordial chest pain, Pleuritic chest pain, Leukocytosis ED Provider Note NAME: DARYL CABRERA AGE: 64 SEX: F : 1955 ARRIVES VIA: Walk-In INFORMANT: [Patient] ED PROVIDER(S): [Hernandez Maldonado MD] CHIEF COMPLAINT: Chest pain HISTORY OF PRESENT ILLNESS: The patient is a 64-year-old female who presents to the ER with 3 days of epigastric abdominal/chest pain. She describes it as heartburn. The pain is minimal but constant and not relieved with antacids. The patient states that yesterday, she began noticing pain in the middle of her back. This pain is a 5 /10. It is sharp. It is worse to breathe and worse to move. The patient states that she is not felt short of breath. There has been no fever or cough. She states eating does not change how she feels. Exertion does not change her pain either. The patient went to her doctor's office and was referred to the ER for a cardiac work-up. The patient states that she has not suffered trauma. She noticed some pain in the left shoulder at 1 point today although, most of the pain seems to be in the mid back between her shoulder blades. The patient does have gallbladder sludge, she has never been told the gallbladder contained stones. She has known reflux but is on medication chronically for this. No known coronary disease. REVIEW OF SYSTEMS: See HPI for pertinent positives and negatives. A total of ten systems were reviewed and were otherwise negative. PMHx/PSHx: See Below SOCIAL HISTORY: See Below. PHYSICAL EXAM: GENERAL: Patient is in no acute distress. HEENT: No acute trauma, normocephalic atraumatic, mucous membranes moist, no nasal congestion, no scleral icterus. NECK: No stridor, no adenopathy, no meningismus, trachea is midline. LUNGS: Clear to auscultation bilaterally, no wheeze, no rhonchi, breath sounds equal. HEART: Without murmurs gallops or rubs, regular rate and rhythm. ABDOMEN: Soft, mildly tender in the right upper quadrant, bowel sounds positive, no hernias, no peritonitis. EXTREMITIES: No cyanosis, mild bilateral pedal edema, full range of motion of all the joints without pain or difficulty, no signs for acute trauma. NEUROLOGIC: Oriented x 3, no acute motor or sensory deficits, no focal weakness. SKIN: No rash, no jaundice, no diaphoresis. DIFFERENTIAL DIAGNOSIS: Cardiac ischemia, aortic dissection, pulmonary embolism, pneumothorax, pneumonia, pericarditis, myocarditis, esophageal rupture, GERD, cholecystitis, pancreatitis, musculoskeletal, as well as other pathologies. EMERGENCY DEPARTMENT COURSE/PROCEDURES: ECG: Indication was chest pain. The EKG shows a sinus rhythm with some sinus arrhythmia. The rate is 80. There are no PVCs. There is some nonspecific ST change, no ST elevation. The QTc is 470. Continuous Cardiac Monitoring: An order was placed for continuous cardiac monitoring. The monitor shows a rate of 87 with sinus rhythm and some sinus arrhythmia. MEDICAL DECISION MAKING: There is a mild leukocytosis, the patient has had this slight elevation in the past though when looking back at previous testing. No anemia. No coagulopathy. No significant electrolyte abnormality or kidney failure. No worrisome liver enzyme elevation. No evidence for pancreatitis. EKG shows a sinus rhythm, no acute ischemia. Cardiac enzyme testing x1 is not consistent with acute cardiac injury. Chest film does not show pneumonia, mediastinal widening or pneumothorax. Gallbladder ultrasound was read as unremarkable. Chest CT does not show PE, there is no evidence for aortic dissection. Patient received oral aspirin, she was given IV Pepcid. She is currently resting comfortably. Cause for the patient's presentation is unclear. She does have some cardiac risk factors. Her pain certainly could be cardiac in origin. Gastritis and her ulcer formation was also thought possible, musculoskeletal pain was thought possible. Further work-up in the hospital is needed. I spoke to the patient, I talked with the case assistant. The on-call hospitalist was consulted. Past Med/Surg History Medical History Asthma childhood; no issues now Complex endometrial hyperplasia with atypia Depression no meds GERD (gastroesophageal reflux disease) Hypertension IBS (irritable bowel syndrome) Kidney stones Lymphedema of left leg Morbid obesity with BMI of 40.0-44.9, adult Surgical History History of colonoscopy with polypectomy History of dental surgery dental implant History of dilatation and curettage x2 History of repair of right rotator cuff History of surgery on left wrist manipulation under anesthesia History of tonsillectomy and adenoidectomy History of tooth extraction under local History of total hysterectomy with bilateral salpingo-oophorectomy (BSO) History of wisdom tooth extraction S/P bilateral salpingo-oophorectomy S/P laparoscopic hysterectomy Family History Mother Family history of diabetes mellitus Grandfather (Maternal) Family history of diabetes mellitus Grandfather (Paternal) Myocardial infarction Other No family history of adverse response to anesthesia Denies family history of Ovarian cancer Breast cancer Colorectal cancer Social History Preferred Language: Citizen Of [place] Communication Ability: Effective Refrigerator Mover Required: No Beliefs That Will Affect Care: None Current Living Situation: Significant Other Other Information That Helps Us Care for You: No Feels Safe at Home: Yes Safety Concerns: Feels Safe At This Time Smoking Status: Former smoker Do You Dip or Chew Tobacco: No ; Smoking End Date: 40 to 50 years ago ; Second Hand Exposure: No ; Tobacco Cessation Education Requested by Patient: No Hx Alcohol Use: Yes Alcohol type: hard liquor Hx Substance Use: No Allergies Allergies Allergy/AdvReac Type Severity Reaction Status Date / Time mussels Allergy Severe DIFFICULTIES Verified 09/13/19 13:02 BREATHING Sulfa (Sulfonamide Allergy Unknown Unknown Verified 09/13/19 13:02 Antibiotics) Home Meds Home Medications Medication Instructions Recorded Confirmed acidophilus-pectin, citrus 1 cap PO BID 09/21/18 09/13/19 [Acidophilus Probiotic] biotin 1 mg PO BID 09/21/18 09/13/19 calcium polycarbophil [FiberCon] 625 mg PO BID 09/21/18 09/13/19 diphenoxylate-atropine [Lomotil] 1 tab PO DAILY PRN 09/21/18 09/13/19 vitamin B complex 1 tab PO QAM 09/21/18 09/13/19 ascorbic acid (vitamin C) [Vitamin 1 g PO DAILY PRN 06/26/19 09/13/19 C] potassium gluconate 99 mg PO BID 06/26/19 09/13/19 alum-mag hydroxide-simeth [Mylanta 5 ml PO UD 09/13/19 09/13/19 Maximum Strength] Previous Rx's Medication Instructions Recorded fluticasone propionate 50 2 spray INTRANASAL QAM #54.6 ml 04/08/19 mcg/actuation nasal spray,suspension fexofenadine 180 mg tablet 180 mg PO HS #90 tab 05/15/19 famotidine 20 mg tablet 20 mg PO BID #180 tab 06/17/19 omeprazole 20 mg tablet,delayed 20 mg PO QAM #90 tab 06/17/19 release hydrochlorothiazide 25 mg tablet 12.5 mg PO QAM #45 tab 08/08/19 Results & Data (ED) Vital Signs Vital Signs - 24 hr 09/13/19 11:20 09/13/19 11:26 09/13/19 13:21 Temperature 36.7 C Temperature Source Oral Pulse Rate 87 Pulse Rate [Apical] 77 Pulse Rhythm [Apical] Regular Pulse Strength [Apical] Normal Respiratory Rate 16 18 Respiratory Effort / Characteristics Non-Labored Non-Labored Spontaneous Non-Labored Spontaneous Respiratory Depth Normal Normal Normal Respiratory Pattern Regular Blood Pressure 158/100 H Blood Pressure [Right Arm] 135/73 Blood Pressure Mean 119 Blood Pressure Mean [Right Arm] 93 Blood Pressure Position [Right Arm] Sitting Pulse Oximetry 98 98 Oxygen Delivery Method Room Air Sepsis Recent Fever Within 48 Hours No Sepsis New/Unexplained Change in Mental Status No Sepsis Action Taken by Nursing No Action Required Home Medications Current Medication List: was personally reviewed by me Laboratory Data Attestation: I reviewed the patient's lab results. Result diagrams: 09/13/19 11:37 09/13/19 11:37 Lab Results 09/13/19 09/13/19 09/13/19 Range/Units 11:37 11:37 11:37 WBC 13.23 H (4.8-10.8) K/uL RBC 5.05 (4.2-5.4) M/uL Hgb 14.4 (12.0-16.0) g/dL Hct 43.7 (37-47) % MCV 86.5 (80-100) fL MCH 28.5 (25-34) pg MCHC 33.0 (32-36) g/dL RDW Std Deviation 42.3 (36.4-46.3) fL RDW Coeff of Shani 13.5 (11.5-14.5) % Plt Count 306 (130-400) K/uL MPV 11.4 H (7.4-10.4) fL Immature Gran % (Auto) 0.3 % Neut % (Auto) 76.8 % Lymph % (Auto) 16.6 % Harnett % (Auto) 5.5 % Eos % (Auto) 0.6 % Baso % (Auto) 0.2 % Immature Gran # (Auto) 0.04 H (0.00-0.02) K/uL Neut # (Auto) 10.17 H (1.4-6.5) K/uL Lymph # (Auto) 2.19 (1.2-3.4) K/uL Harnett # (Auto) 0.73 H (0.11-0.59) K/uL Eos # (Auto) 0.08 (0-0.5) K/uL Baso # (Auto) 0.02 (0-0.2) K/uL PT 11.1 (9.0-12.0) Seconds INR 1.1 (0.9-1.1) APTT 28.8 (21.0-31.0) Seconds PTT Ratio 1.0 Sodium 142 (136-145) mmol/L Potassium 3.8 (3.5-5.1) mmol/L Chloride 105 (98-107) mmol/L Carbon Dioxide 29 (21-32) mmol/L Anion Gap 8.0 (3-11) BUN 11 (7-18) mg/dl Creatinine 0.78 (0.6-1.2) mg/dl Est Cr Clr Drug Dosing 106.1 ml/min Est GFR ( Amer) 92.5 Est GFR (Non-Af Amer) 79.8 BUN/Creatinine Ratio 14.2 (10-20) Glucose 100 H (70-99) mg/dl Calcium 8.7 (8.5-10.1) mg/dl Magnesium 2.2 (1.8-2.4) mg/dl Total Bilirubin 0.4 (0.2-1) mg/dl AST 16 (15-37) U/L ALT 21 (12-78) U/L Alkaline Phosphatase 90 (45-117) U/L Troponin I < 0.015 (0-0.045) ng/ml Total Protein 8.0 (6.4-8.2) gm/dl Albumin 3.4 (3.4-5.0) gm/dl Globulin 4.6 H (2.5-4.0) gm/dl Albumin/Globulin Ratio 0.7 L (0.9-2) Lipase 81 (73-393) U/L Administered Medications Ioversol (Optiray 320 125ml) 119 ml IV ONCE PRN PRN Reason: Interaction Checking Stop: 09/17/19 12:24 Last Admin: 09/13/19 12:25 Dose: 119 ml Documented by: [id number] Discontinued Medications Aspirin (Aspirin) 324 mg PO NOW STA Stop: 09/13/19 11:34 Last Admin: 09/13/19 11:42 Dose: 324 mg Documented by: [id number] Famotidine (Pepcid 20mg Iv Push) 20 mg IV ONE STA Stop: 09/13/19 11:34 Last Admin: 09/13/19 11:42 Dose: 20 mg Documented by: [id number] Imaging Data Radiologist's Impression: XR chest 1V portable CLINICAL HISTORY: Chest Pain COMPARISON STUDY: Chest radiograph June 14, 2019. FINDINGS: Lung volumes are normal. Lungs are clear. There is no pneumothorax or pleural effusion. Cardiac size is normal. Mediastinal contours are normal. There is no evidence for pulmonary edema. IMPRESSION: No acute cardiopulmonary findings. ABDOMINAL ULTRASOUND, RIGHT UPPER QUADRANT HISTORY: Epigastric pain to back. COMPARISON: Abdominal ultrasound 06/19/2019. FINDINGS: Pancreas: The pancreas demonstrates a normal echotexture. Liver: The liver is echogenic consistent with fatty change. The liver measures 17 cm in length. Gallbladder: No gallbladder wall thickening. No gallstones. CBD: 4 mm. Right kidney: No hydronephrosis. IMPRESSION: 1. Normal gallbladder. No gallstones. 2. Hepatic steatosis. CHEST CTA for PULMONARY ARTERIES CT DOSE: 557.52 mGycm HISTORY: Atypical Chest Pain, eval for PE TECHNIQUE: Multiaxial CT images of the chest were performed following the intravenous administration of contrast to evaluate the pulmonary arteries. Maximal intensity projection images were also obtained. A dose lowering technique was utilized adhering to the principles of ALARA. COMPARISON STUDY: Chest 09/13/2019. FINDINGS: There is a normal caliber thoracic aorta with no evidence for dissection. There is no evidence for pulmonary embolus. No pleural effusions. No pneumothorax. The liver and spleen are unremarkable. No mediastinal or hilar lymphadenopathy. The central airways are patent. There is a 1.7 cm left thyroid nodule/cyst. Ascending thoracic aorta measures up to 3.6 cm in diameter. The heart is normal in size. There is a 5 cm fat-containing intramuscular lesion within the left lateral chest wall. This likely represents a lipoma. There is a 3 mm nodule within the left lower lobe in image 100. There is also a 3 mm nodule within the left upper lobe on image 201. Otherwise, the lungs are clear. IMPRESSION: 1. No evidence for pulmonary embolus. 2. A 1.7 cm left thyroid nodule/cyst. Nonemergent thyroid ultrasound recommended for further evaluation. 3. Subcentimeter indeterminate pulmonary nodules within the left lung measuring up to 3 mm. Please refer to the chart below for recommended follow-up. Blood Pressure Blood Pressure Findings: Elevated blood pressure Blood Pressure Disposition: further management by hospitalist Discharge Plan Visit Data *Final* Discharge Date/Time: 09/13/19 15:40 Chief Complaint: Cardiac Assessment Stated Complaint: PAIN IN BACK ED Provider: Hernandez Maldonado Discharge Problem: Precordial chest pain, Pleuritic chest pain, Leukocytosis Patient Disposition: Admitted As Inpatient Condition: Good Discharge Instructions Interventions: ED Discharge Assessment Last Done: 09/13/19 15:40 Discharge Problem: Leukocytosis Qualifiers: Leukocytosis type: unspecified Qualified Code(s): D72.829 - Elevated white blood cell count, unspecified
[2019-09-13 11:46] LABS: Basophils # (auto) 0.02 K/uL (0-0.2); Basophils % (auto) 0.2 %; Eosinophils # (auto) 0.08 K/uL (0-0.5); Eosinophils % (auto) 0.6 %; Hematocrit (blood only) 43.7 % (37-47); Hemoglobin 14.4 g/dL (12.0-16.0); Immature Granulocytes # (auto) 0.04 K/uL (0.00-0.02); Immature Granulocytes % (auto) 0.3 %; Lymphocytes # (auto) 2.19 K/uL (1.2-3.4); Lymphocytes % (auto) 16.6 %; Mean Corpuscular Hemoglobin 28.5 pg (25-34); Mean Corpuscular Volume 86.5 fL (80-100); Mean Platelet Volume 11.4 fL (7.4-10.4); Monocytes # (auto) 0.73 K/uL (0.11-0.59); Monocytes % (auto) 5.5 %; Neutrophils # (auto) 10.17 K/uL (1.4-6.5); Neutrophils % (auto) 76.8 %; Platelet Count 306 K/uL (130-400); RDW Coefficient of Variation 13.5 % (11.5-14.5); RDW Standard Deviation 42.3 fL (36.4-46.3); Red Blood Count 5.05 M/uL (4.2-5.4); White Blood Count 13.23 K/uL (4.8-10.8)
[2019-09-13 11:59] LABS: INR 1.1 (0.9-1.1); Partial Thromboplastin Time 28.8 Seconds (21.0-31.0); Prothrombin Time 11.1 Seconds (9.0-12.0)
[2019-09-13 12:06] LABS: Alanine Aminotransferase 21 U/L (12-78); Albumin Level 3.4 gm/dl (3.4-5.0); Aspartate Aminotransferase 16 U/L (15-37); BUN Creatinine Ratio 14.2 (10-20); Blood Urea Nitrogen 11 mg/dl (7-18); Calcium 8.7 mg/dl (8.5-10.1); Carbon Dioxide 29 mmol/L (21-32); Chloride 105 mmol/L (98-107); Creatinine Clr Calc Pharmacy 106.1 ml/min; Est GFR (African American) 92.5; Est GFR (Non-African American) 79.8; Glucose 100 mg/dl (70-99); Lipase 81 U/L (73-393); Magnesium 2.2 mg/dl (1.8-2.4); Potassium 3.8 mmol/L (3.5-5.1); Sodium 142 mmol/L (136-145)
[2019-09-13 12:11] LABS: Albumin Globulin Ratio 0.7 (0.9-2); Alkaline Phosphatase 90 U/L (45-117); Bilirubin,Total 0.4 mg/dl (0.2-1); Globulin 4.6 gm/dl (2.5-4.0); Troponin I < 0.015 ng/ml (0-0.045)
--- NOTE | 2019-09-13 12:12 | XRay Report ---
XR chest 1V portable CLINICAL HISTORY: Chest Pain COMPARISON STUDY: Chest radiograph June 14, 2019. FINDINGS: Lung volumes are normal. Lungs are clear. There is no pneumothorax or pleural effusion. Car diac size is normal. Mediastinal contours are normal. There is no evidence for pulmonary edema. IMPRESSION: No acute cardiopulmonary findings. ACT 112: Negative or not required by law. Electronically signed by: Hoang Cox M.D. 09/13/2019 12:11 PM
--- NOTE | 2019-09-13 12:23 | Ultrasound Report ---
ABDOMINAL ULTRASOUND, RIGHT UPPER QUADRANT HISTORY: Epigastric pain to back. COMPARISON: Abdominal ultrasound 06/19/2019. FINDINGS: Pancreas: The pancreas demonstrates a normal echotexture. Liver: The liver is echogenic consistent with fatty change. The liver measures 17 cm in length. Gallbladder: No gallbladder wall thickening. No gallstones. CBD: 4 mm. Right kidney: No hydronephrosis. IMPRESSION: 1. Normal gallbladder. No gallstones. 2. Hepatic steatosis. ACT 112: Negative or not required by law. Electronically signed by: Marcos Velez M.D. 09/13/2019 12:21 PM
[2019-09-13] MEDS ORDERED: OPTIRAY 320 125ml IV PRN (12:25)
--- NOTE | 2019-09-13 12:44 | CT Scan Report ---
CHEST CTA for PULMONARY ARTERIES CT DOSE: 557.52 mGycm HISTORY: Atypical Chest Pain, eval for PE TECHNIQUE: Multiaxial CT images of the chest were performed following the intravenous administration of contrast to evaluate the pulmonary arteries. Maximal intensity projection images were also obtaine d. A dose lowering technique was utilized adhering to the principles of ALARA. COMPARISON STUDY: Chest 09/13/2019. FINDINGS: There is a normal caliber thoracic aorta with no evidence for dissection. There is no evide nce for pulmonary embolus. No pleural effusions. No pneumothorax. The liver and spleen are unremarkab le. No mediastinal or hilar lymphadenopathy. The central airways are patent. There is a 1.7 cm left t hyroid nodule/cyst. Ascending thoracic aorta measures up to 3.6 cm in diameter. The heart is normal i n size. There is a 5 cm fat-containing intramuscular lesion within the left lateral chest wall. This likely represents a lipoma. There is a 3 mm nodule within the left lower lobe in image 100. There is also a 3 mm nodule within the left upper lobe on image 201. Otherwise, the lungs are clear. IMPRESSION: 1. No evidence for pulmonary embolus. 2. A 1.7 cm left thyroid nodule/cyst. Nonemergent thyroid ultrasound recommended for further evaluati on. 3. Subcentimeter indeterminate pulmonary nodules within the left lung measuring up to 3 mm. Please re xiao to the chart below for recommended follow-up. Please refer to below summary of Fleischner criteria recommendations for follow-up of incidental CT n odules (Ino Mcdaniels, Guidelines for management of small pulmonary nodules detected on CT scans: A sta tement from the Fleischner Society, Radiology 237: [phone].) SOLID NODULES Solitary nodule size: <6 mm * Low risk patients: no follow-up needed * high risk patients: optional CT at 12 months Solitary nodule size: 6-8 mm * Low risk patients: follow-up at 6-12 months, then consider further follow-up at 18-24 months * high risk patients: initial follow-up CT at 6-12 months and then at 18-24 months if no change Solitary nodule size: >8 mm * either low or high risk patients - consider follow-up CT at 3 months, and/or CT-PET, and/or biopsy Multiple nodules size: <6 mm * Low risk patients: no routine follow-up * high risk patients: optional CT at 12 months Multiple nodules size: 6-8 mm * Low risk patients: follow-up at 3-6 months, then consider further follow-up at 18-24 months * high risk patients: follow-up at 3-6 months, then at 18-24 months if no change Multiple nodules size: >8 mm * Low risk patients: follow-up at 3-6 months, then consider further follow-up at 18-24 months * high risk patients: follow-up at 3-6 months, then at 18-24 months if no change Note: newly detected indeterminate nodule in persons 35 years of age or older. * Low risk patients: minimal or absent history of smoking and/or other known risk factors * high risk patients: history of smoking or of other known risk factors (e.g. first degree relative with lung cancer, or exposure to asbestos, radon, uranium) * if a nodule up to 8 mm is partly solid or is ground glass further follow-up is required after 24 m onths to exclude possible slow growing adenocarcinoma (MIC) SUBSOLID NODULES Solitary pure ground-glass nodule * nodule size <6 mm - no CT follow-up required * nodule size >=6 mm - follow-up CT at 6-12 months, then every 2 years until 5 years Solitary part-solid nodule * nodule size <6 mm - no CT follow-up required * nodule size >=6 mm - follow-up CT at 3-6 months. If unchanged, and solid component remains <6 mm, then annual follow-up for 5 years Multiple subsolid nodules * nodule size <6 mm - follow-up CT at 3-6 months, consider further follow-up at 2 and 4 years if sta ble * nodule size >=6 mm - follow-up CT at 3-6 months, subsequent management based on the most suspiciou s nodule(s) ACT 112: Negative or not required by law. Electronically signed by: Marcos Velez M.D. 09/13/2019 12:43 PM
--- NOTE | 2019-09-13 13:38 | History & Physical Report ---
Date of Service September 13, 2019 Assessment & Plan (1) Precordial chest pain: - Admit to tele for observation for r/o - Trend cardiac biomarkers, initial set was negative - EKG reviewed as above - Check 2 D echo - If negative enzymes can consider a stress test tomorrow morning, would likely need to be dobutamine stress test if conducted due to patient's body habitus. - PT/OT consulted - CT PE was negative for PE also negative for aortic dissection - pt is pain free currently, she can feel some pressure in the R shoulder when it is palpated but denies that this is similar pain to earlier. (2) Chronic GERD: -Possible GERD component involving cardiac/substernal chest pain -Continue on famotidine IV twice daily, omeprazole, Carafate, and gi cocktail (mylanta + viscous lidocaine) for pain relief (3) IBS (irritable bowel syndrome): (4) Obesity: - BMI of 43.8 -Diet and exercise to be encouraged prior to discharge -Encourage the patient keep a food log, discussed identifying trigger foods which worsen her GERD and IBS, she states that she used to do this but that it has been years since doing it in the past. (5) DVT prophylaxis: - teds, scds CODE: Full code Dispo: From home, likely to remain in the hospital overnight History of Present Illness Primary Care Provider: Nichole Al MD This is a 64 yo F with PMHx of GERD, obesity with BMI of 43.8, IBS, hypertension who presents with acute onset of substernal chest pain which began last evening, radiating to the back and the right shoulder. Patient notes that she developed this on Monday and had been progressively getting worse. She initially thought that this was a flare up of GERD with more belching than normal, used Mylanta several times per day however this did not provide relief. She has also been taking omeprazole every morning routinely to combat symptoms for GERD, and watching what she eats. She has been trying not to eat meals before 7am or after 7:30 pm. . She denies any nausea or vomiting. Last normal bowel movement was this morning, no abd pain.. She denies any cardiac history, and denies any significant family history. She does not smoke, does not consume alcohol. She admits to drinking a melchor Coke on Wednesday and normally avoids carbonated beverages as this exacerbates her indigestion, but also admits to having more than 20-24 ounces of iced tea every day, and had perogies covered in butter. Allergies Allergy/AdvReac Type Severity Reaction Status Date / Time randall Allergy Severe DIFFICULTIES Verified 09/13/19 13:02 BREATHING Sulfa (Sulfonamide Allergy Unknown Unknown Verified 09/13/19 13:02 Antibiotics) Home Medications Home Medications Medication Instructions Recorded Confirmed Type acidophilus-pectin, citrus 1 cap PO BID 09/21/18 09/13/19 History [Acidophilus Probiotic] biotin 1 mg PO BID 09/21/18 09/13/19 History calcium polycarbophil [FiberCon] 625 mg PO BID 09/21/18 09/13/19 History diphenoxylate-atropine [Lomotil] 1 tab PO DAILY PRN 09/21/18 09/13/19 History vitamin B complex 1 tab PO QAM 09/21/18 09/13/19 History fluticasone propionate 50 2 spray INTRANASAL QAM #54.6 ml 04/08/19 09/13/19 Rx mcg/actuation nasal spray,suspension fexofenadine 180 mg tablet 180 mg PO HS #90 tab 05/15/19 09/13/19 Rx famotidine 20 mg tablet 20 mg PO BID #180 tab 06/17/19 09/13/19 Rx omeprazole 20 mg tablet,delayed 20 mg PO QAM #90 tab 06/17/19 09/13/19 Rx release ascorbic acid (vitamin C) [Vitamin 1 g PO DAILY PRN 06/26/19 09/13/19 History C] potassium gluconate 99 mg PO BID 06/26/19 09/13/19 History hydrochlorothiazide 25 mg tablet 12.5 mg PO QAM #45 tab 08/08/19 09/13/19 Rx alum-mag hydroxide-simeth [Mylanta 5 ml PO UD 09/13/19 09/13/19 History Maximum Strength] Past Med/Surg History Medical History (Updated 09/13/19 @ 14:26 by Precious Deras PA-C) Asthma childhood; no issues now Complex endometrial hyperplasia with atypia Depression no meds GERD (gastroesophageal reflux disease) Hypertension IBS (irritable bowel syndrome) Kidney stones Lymphedema of left leg Morbid obesity with BMI of 40.0-44.9, adult Surgical History (Updated 08/14/19 @ 12:26 by Nichole Al MD) History of colonoscopy with polypectomy History of dental surgery dental implant History of dilatation and curettage x2 History of repair of right rotator cuff History of surgery on left wrist manipulation under anesthesia History of tonsillectomy and adenoidectomy History of tooth extraction under local History of total hysterectomy with bilateral salpingo-oophorectomy (BSO) History of wisdom tooth extraction S/P bilateral salpingo-oophorectomy S/P laparoscopic hysterectomy Social History Preferred Language: Faroese Communication Ability: Effective Certified Teacher Assistant Required: No Beliefs That Will Affect Care: None Current Living Situation: Significant Other Other Information That Helps Us Care for You: No Feels Safe at Home: Yes Safety Concerns: Feels Safe At This Time Smoking Status: Former smoker Do You Dip or Chew Tobacco: No ; Smoking End Date: 40 to 50 years ago ; Second Hand Exposure: No ; Tobacco Cessation Education Requested by Patient: No Hx Alcohol Use: Yes Alcohol type: hard liquor Hx Substance Use: No Review of Systems Review of Systems: Constitutional: No fever, sweats or chills Eyes: No diplopia, no worsening or blurred vision ENT: normal hearing, no trouble swallowing Respiratory: No cough, sputum, dyspnea at rest or on exertion Cardiovascular: + As per HPI. no current chest pain, tightness or palpitations Abdomen: No pain, nausea, vomiting, diarrhea or constipation Musculoskeletal: No joint pain, calf pain, swelling Neurologic: No weakness, numbness/tingling, or balance problems Psychiatric: + anxiety and depression, controlled Skin: No rash or itch Physical Exam Physical Exam: General: awake, alert, no apparent distress, + morbidly obese, BMI = 43.8 Head: Normocephalic, atraumatic ENT: PERRL, EOMI, no pharyngeal exudate, mucous membranes moist Chest: + Nontender to palpation, clear to auscultation, on room air, no adventitious breath sounds Cardiac: Regular rate and rhythm, no murmur, no JVD, normal peripheral pulses, good capillary refill Abdominal: NABS x 4 quadrants, soft, nondistended, nontender to palpation, no rebound, guarding or tenderness Extremities: R shoulder pressure/slight pain with palpation, otherwise normal inspection, no peripheral edema or erythema, calfs nontender to palpation Psych: Normal mood and affect Neuro: AAO x 3, no gross motor deficits, speech is clear, no peripheral sensory deficits Skin: no rash or erythema Results & Data Results & Data ([facility]) Vital Signs (Past 12 Hours) Vital Signs Temp Pulse Pulse Resp BP BP Pulse Ox 09/13/19 13:21 77 18 135/73 98 09/13/19 11:20 36.7 C 87 16 158/100 H 98 Diagnostic Findings CHEST CTA for PULMONARY ARTERIES CT DOSE: 557.52 mGycm HISTORY: Atypical Chest Pain, eval for PE TECHNIQUE: Multiaxial CT images of the chest were performed following the intravenous administration of contrast to evaluate the pulmonary arteries. Maximal intensity projection images were also obtained. A dose lowering technique was utilized adhering to the principles of ALARA. COMPARISON STUDY: Chest 09/13/2019. FINDINGS: There is a normal caliber thoracic aorta with no evidence for dissection. There is no evidence for pulmonary embolus. No pleural effusions. No pneumothorax. The liver and spleen are unremarkable. No mediastinal or hilar lymphadenopathy. The central airways are patent. There is a 1.7 cm left thyroid nodule/cyst. Ascending thoracic aorta measures up to 3.6 cm in diameter. The heart is normal in size. There is a 5 cm fat-containing intramuscular lesion within the left lateral chest wall. This likely represents a lipoma. There is a 3 mm nodule within the left lower lobe in image 100. There is also a 3 mm nodule within the left upper lobe on image 201. Otherwise, the lungs are clear. IMPRESSION: 1. No evidence for pulmonary embolus. 2. A 1.7 cm left thyroid nodule/cyst. Nonemergent thyroid ultrasound recommended for further evaluation. 3. Subcentimeter indeterminate pulmonary nodules within the left lung measuring up to 3 mm. Please refer to the chart below for recommended follow-up. XR chest 1V portable CLINICAL HISTORY: Chest Pain COMPARISON STUDY: Chest radiograph June 14, 2019. FINDINGS: Lung volumes are normal. Lungs are clear. There is no pneumothorax or pleural effusion. Cardiac size is normal. Mediastinal contours are normal. There is no evidence for pulmonary edema. IMPRESSION: No acute cardiopulmonary findings. ACT 112: Negative or not required by law. ABDOMINAL ULTRASOUND, RIGHT UPPER QUADRANT HISTORY: Epigastric pain to back. COMPARISON: Abdominal ultrasound 06/19/2019. FINDINGS: Pancreas: The pancreas demonstrates a normal echotexture. Liver: The liver is echogenic consistent with fatty change. The liver measures 17 cm in length. Gallbladder: No gallbladder wall thickening. No gallstones. CBD: 4 mm. Right kidney: No hydronephrosis. IMPRESSION: 1. Normal gallbladder. No gallstones. 2. Hepatic steatosis. ECG Additional Comments: 13-SEP-2019 11:26:18 [facility]-EDSTAT ROUTINE RETRIEVAL inus rhythm with marked sinus arrhythmia Nonspecific ST abnormality Abnormal ECG When compared with ECG of 14-JUN-2019 19:19, No significant change was found 25mm/s 10mm/mV 150Hz 9.0.9 12SL 241 DAVIAN: 16 Referred by: REFERRED SELF Unconfirmed Vent. rate 80 BPM KS interval 158 ms QRS duration 96 ms QT/QTc 408/470 ms P-R-T axes 54 59 22 Code Status & VTE Plan Code Status Full code-discussed with the patient at bedside Supervising Physician Co-Signing Physician Notes Patient was seen and examined independently I discussed the case with Josefina Wesley PAC I reviewed pertinent past medical social family history and also the plan of care and agree with the plan of care. This patient is a morbidly obese pain with a history of GERD who recently has had her Pepcid be on backorder. Patient continues take omeprazole. Patient is much more sedentary than typical. Patient is had persistent discomfort in her back and shoulder for 2 days. She presents with similar discomfort. Patient has no acute changes on her EKG but some nonspecific ST-T changes. Negative troponin negative CTA. Patient be observed in our facility for atypical chest pain. Vitals are stable Cardiac exam is regular without murmurs or rubs Abdominal exam is without reproducible discomfort We will do patient observed in our facility check serial enzymes will institute Carafate in addition to her PPI however on telemetry PG Care Time/CCT Total # of Minutes Spent Total Time Spent with Patient: Total time spent is greater than 50% in coordination of care (as documented) at patient's floor/unit and/or counseling patient: Coding Level of Care Code 25206 OBS Care - Level 3 Diagnoses Precordial chest pain R07.2 Chronic GERD K21.9 IBS (irritable bowel syndrome) K58.9 Obesity E66.9 DVT prophylaxis Z29.9
[2019-09-13] MEDS ORDERED: ONDANSETRON INJ 2 MG/ML 2 ML VIAL IV PRN (13:48)
[2019-09-13] MEDS ORDERED: ACETAMINOPHEN 325 MG TAB PO PRN (13:48)
[2019-09-13] MEDS ORDERED: ALUMINUM/MAGNESIUM/SIMETH (MAALOX MAX) 30 ML UDC PO SCH (16:20)
[2019-09-13] MEDS ORDERED: ALUMINUM/MAGNESIUM SUSP 72 ML, LIDOCAINE HCL VISCOUS 2% 24 ML, BARCODE IDENTIFIER 1 EA PO PRN (16:20)
[2019-09-13] MEDS: SUCRALFATE 1 GM/10 ML UDC PO SCH ×2 (18:00→20:24)
--- NOTE | 2019-09-13 18:20 | XCELERA ---
[id number]
[2019-09-13] MEDS: ALUMINUM/MAGNESIUM/SIMETH (MAALOX MAX) 30 ML UDC PO SCH ×2 (18:38→23:42)
--- NOTE | 2019-09-13 19:47 | Electrocardiogram Report ---
Test Reason : Blood Pressure : / mmHG Vent. Rate : 080 BPM Atrial Rate : 080 BPM P-R Int : 158 ms QRS Dur : 096 ms QT Int : 408 ms P-R-T Axes : 054 059 022 degrees QTc Int : 470 ms Sinus rhythm with marked sinus arrhythmia Nonspecific ST abnormality Abnormal ECG When compared with ECG of 14-JUN-2019 19:19, No significant change was found Confirmed by Torrey Byers ([id number]) on 09/13/2019 7:47:21 PM Referred By: REFERRED SELF Confirmed By:Jaswinder Byers
[2019-09-13] MEDS: LACTOBACILLUS ACIDOPHILUS (FLORANEX) TAB PO SCH (20:24)
[2019-09-13] MEDS: FAMOTIDINE 20MG/5ML IV PUSH IV SCH (20:51)
[2019-09-13] MEDS ORDERED: FEXOFENADINE HCL 180 MG TAB PO SCH (21:00)
[2019-09-13] MEDS: [UNRECOGNIZED DRUG - OTHER] SCH (23:41)
[2019-09-14 02:04] LABS: Hematocrit (blood only) 40.4 % (37-47); Hemoglobin 13.5 g/dL (12.0-16.0); Mean Corpuscular Hemoglobin 28.7 pg (25-34); Mean Corpuscular Hgb Conc 33.4 g/dL (32-36); Mean Platelet Volume 11.1 fL (7.4-10.4); Platelet Count 283 K/uL (130-400); RDW Coefficient of Variation 13.3 % (11.5-14.5)
[2019-09-14 02:25] LABS: Alanine Aminotransferase 18 U/L (12-78); Albumin Level 2.9 gm/dl (3.4-5.0); Aspartate Aminotransferase 11 U/L (15-37); BUN Creatinine Ratio 14.1 (10-20); Blood Urea Nitrogen 10 mg/dl (7-18); Calcium 8.2 mg/dl (8.5-10.1); Carbon Dioxide 29 mmol/L (21-32); Chloride 108 mmol/L (98-107); Creatinine Clr Calc Pharmacy 116.6 ml/min; Est GFR (African American) 103.6; Est GFR (Non-African American) 89.4; Glucose 94 mg/dl (70-99); Potassium 3.7 mmol/L (3.5-5.1); Sodium 144 mmol/L (136-145)
[2019-09-14 02:30] LABS: Albumin Globulin Ratio 0.7 (0.9-2); Alkaline Phosphatase 75 U/L (45-117); Bilirubin,Total 0.5 mg/dl (0.2-1); Chol HDL Ratio 3; Cholesterol 116 mg/dl (0-200); Globulin 4.1 gm/dl (2.5-4.0); HDL Cholesterol 37 mg/dl; LDL Cholesterol Calculated 60 mg/dl; Triglycerides 95 mg/dl (0-150); Troponin I < 0.015 ng/ml (0-0.045); VLDL Cholesterol 19 mg/dl
[2019-09-14] MEDS: ALUMINUM/MAGNESIUM/SIMETH (MAALOX MAX) 30 ML UDC PO SCH ×2 (05:29→12:12)
[2019-09-14 06:06] LABS: Estimated Average Glucose 111 mg/dl; Hemoglobin A1C 5.5 % (4.5-5.6)
[2019-09-14] MEDS: SUCRALFATE 1 GM/10 ML UDC PO SCH ×2 (07:30→12:12)
[2019-09-14] MEDS: [UNRECOGNIZED DRUG - OTHER] SCH ×2 (08:55→12:12)
[2019-09-14] MEDS: LACTOBACILLUS ACIDOPHILUS (FLORANEX) TAB PO SCH (08:57)
[2019-09-14] MEDS ORDERED: hydroCHLOROthiazide 25 MG TAB PO SCH (09:00)
[2019-09-14] MEDS ORDERED: FAMOTIDINE 20 MG in SYRINGE 3 ML IV SCH (09:00)
[2019-09-14] MEDS ORDERED: FLUTICASONE PROPIONATE NA SPR 16 GM BTL SCH (09:00)
[2019-09-14] MEDS: FAMOTIDINE 20MG/5ML IV PUSH IV SCH (10:26)
--- NOTE | 2019-09-14 12:25 | Discharge Summary ---
Date of Service September 14, 2019 Admission HPI Per Admitting Provider This is a 64 yo F with PMHx of GERD, obesity with BMI of 43.8, IBS, hypertension who presents with acute onset of substernal chest pain which began last evening, radiating to the back and the right shoulder. Patient notes that she developed this on Monday and had been progressively getting worse. She initially thought that this was a flare up of GERD with more belching than normal, used Mylanta several times per day however this did not provide relief. She has also been taking omeprazole every morning routinely to combat symptoms for GERD, and watching what she eats. She has been trying not to eat meals before 7am or after 7:30 pm. She denies any nausea or vomiting. Last normal bowel movement was this morning, no abd pain.. She denies any cardiac history, and denies any significant family history. She does not smoke, does not consume alcohol. She admits to drinking a melchor Coke on Monday and normally avoids carbonated beverages as this exacerbates her indigestion, but also admits to having more than 20-24 ounces of iced tea every day, and had perogies covered in butter. Admission Exam Per Admitting Provider Physical Exam General: awake, alert, no apparent distress, + morbidly obese, BMI = 43.8 Head: Normocephalic, atraumatic ENT: PERRL, EOMI, no pharyngeal exudate, mucous membranes moist Chest: + Nontender to palpation, clear to auscultation, on room air, no adventitious breath sounds Cardiac: Regular rate and rhythm, no murmur, no JVD, normal peripheral pulses, good capillary refill Abdominal: NABS x 4 quadrants, soft, nondistended, nontender to palpation, no rebound, guarding or tenderness Extremities: R shoulder pressure/slight pain with palpation, otherwise normal inspection, no peripheral edema or erythema, calfs nontender to palpation Psych: Normal mood and affect Neuro: AAO x 3, no gross motor deficits, speech is clear, no peripheral sensory deficits Skin: no rash or erythema Principal Diagnosis GERD Chest pain due to indigestion Discharge Exam General: awake, alert, no apparent distress Head: Normocephalic, atraumatic ENT: PERRL, EOMI, no pharyngeal exudate, mucous membranes moist Chest: +nontender to palpation of chest wall. Clear to auscultation, on room air, no adventitious breath sounds Cardiac: Regular rate and rhythm, no murmur, no JVD, normal peripheral pulses, good capillary refill Abdominal: NABS x 4 quadrants, soft, nondistended, nontender to palpation, no rebound, guarding or tenderness Extremities: Normal inspection, no peripheral edema or erythema, calfs nontender to palpation Psych: Normal mood and affect Neuro: AAO x 3, strength intact bilaterally and rated 5/5, no motor deficits, speech is clear, no peripheral sensory deficits Discharge Data Allergies Allergy/AdvReac Type Severity Reaction Status Date / Time mussels Allergy Severe DIFFICULTIES Verified 09/13/19 13:02 BREATHING Sulfa (Sulfonamide Allergy Unknown Unknown Verified 09/13/19 13:02 Antibiotics) Consultations 09/13/19 13:37 ED Decision to Admit Stat 09/13/19 13:46 Consult Case Management - Discharge Planning Routine Ordered Studies 09/13/19 11:32 CT angio chest PE protocol Stat US gallbladder Stat Hospital Course (1) Precordial chest pain: - Admit to tele for observation - Trend cardiac biomarkers, all were negative - EKG reviewed as above - 2 D echo complete: LV function normal, right ventricular systolic pressure elevated at 40-50mmHg, no significant valvular disease. - PT/OT consulted - CT PE was negative for PE also negative for aortic dissection - pt is pain free currently, she can feel some pressure in the R shoulder when it is palpated but denies that this is similar pain to earlier. (2) Chronic GERD: -Likely GERD component involving cardiac/substernal chest pain -Continue on famotidine IV twice daily -- will send new Rx at discharge for pt as she reports pharmacy at [facility] has not been able to fill this for her and therefore doesn't have it. Will send to [facility] pharmacy. Continue omeprazole, sent Rx for Carafate (3) IBS (irritable bowel syndrome): (4) Obesity: -BMI of 43.8 -Diet and exercise to be encouraged prior to discharge - encouraged her to walk 4 days per week for 30 minutes. -Encourage the patient keep a food log, discussed identifying trigger foods which worsen her GERD and IBS, she states that she used to do this but that it has been years since doing it in the past. (5) DVT prophylaxis: - teds, scds CODE: Full code Dispo: From home, discharge to home Total Time Total Time Spent Total Time Spent (In Minutes): 32 Discharge Plan Discharge Items Patient Disposition: Home - Self-Care Reason For Visit: CHEST PAIN Discharge Diagnosis: Chest pain due to GERD Condition on Discharge: Good Activity: Resume your previous activity Activity Comment: Walk 4 days per week, for 30 minutes for exercise. Lifting: Gradually increase as tolerated Bathing: No limitations Exercise/Sports: As tolerated Driving/Machine Use: No limitations Weightbearing: Full weightbearing Non-emergency contact: Primary Care Provider Call non-emergency contact if: you have any medication questions, your symptoms worsen, your pain is not controlled and you have a fever Follow-up/Referrals: Nichole Al MD [Primary Care Provider] - Diet: Heart Healthy Diet Comment: See attached forms for more information with GERD. Addtl Attending Provider Instructions: You were admitted to [facility] due to chestpain and diagnosed with chest pain due to indigestion. During your stay here you were treated with supportive care, medications including mylanta, pepcid and your symptoms improved. Imaging studies which were completed include echocardiogram, and were abnormal showing increased right pulmonary pressure, but normal valves and ejection fraction. Keep a food log and exercise at least 4 times per week for 30 minutes. Medications: Continue taking you medications as prescribed Take famotidine (ie. pepcid) 20 mg twice daily. A new prescription has been sent for you. Take mylanta up to every 6 hours for indigestion. Appointments: Follow up with PCP within 1 week, an appointment has been requested for you. Pending Studies at Discharge: No Stand-Alone Forms: [facility] [employer], Work/School Release (Inpt), Smoking Cessation Medications and DC Order Prescriptions: New sucralfate 100 mg/mL Suspension 1 gm PO ACHS Qty: 420 RF: 1 famotidine 20 mg tablet 20 mg PO BID 30 Days Qty: 60 RF: 1 Continued fluticasone propionate [Flonase Allergy Relief] 50 mcg/actuation spray,suspension 2 spray INTRANASAL QAM Qty: 54.6 RF: 1 hydrochlorothiazide 25 mg tablet 12.5 mg PO QAM Qty: 45 RF: 1 omeprazole 20 mg tablet,delayed release (DR/EC) 20 mg PO QAM Qty: 90 RF: 1 fexofenadine 180 mg tablet 180 mg PO HS Qty: 90 RF: 1 biotin 1 mg Tablet 1 mg PO BID RF: 0 diphenoxylate-atropine [Lomotil] 2.5-0.025 mg Tablet 1 tab PO DAILY PRN (Reason: Diarrhea) RF: 0 calcium polycarbophil [FiberCon] 625 mg Tablet 625 mg PO BID RF: 0 vitamin B complex Tablet 1 tab PO QAM RF: 0 acidophilus-pectin, citrus [Acidophilus Probiotic] 100 million cell-10 mg Capsule 1 cap PO BID RF: 0 alum-mag hydroxide-simeth [Mylanta Maximum Strength] 400-400-40 mg/5 mL Suspension 5 ml PO UD RF: 0 ascorbic acid (vitamin C) [Vitamin C] 1,000 mg Tablet 1 g PO DAILY PRN (Reason: Cold Symptoms) RF: 0 potassium gluconate 595 mg (99 mg) Tablet 99 mg PO BID RF: 0 Discontinued famotidine 20 mg tablet 20 mg PO BID Qty: 180 RF: 1 Discharge Orders: Discharge Order (Routine); Ordered 09/14/19 Ordered By: Precious Mulligan/Other Patient Handouts: GERD, GERD Lifestyle Changes, GERD Meds Admission Data Admit Date/Time: 09/13/19 13:43 Attending Provider: Jason Schwartz Admit Provider: Precious Deras Primary Care Provider: Nichole Al Other Providers: Jason Schwartz Coding Level of Care Code D/C Day Management >30 mins Diagnoses Precordial chest pain R07.2 Chronic GERD K21.9 IBS (irritable bowel syndrome) K58.9 Obesity E66.9 DVT prophylaxis Z29.9
== END 2019-09-14 16:22 | disposition home or self-care (01) ==
LOC: 2W 11:18 → ED 11:18 → 2W 15:40
DX: R10.13 Epigastric pain; J45.909 Unspecified asthma, uncomplicated; K21.9 Gastro-esophageal reflux disease without esophagitis; D72.829 Elevated white blood cell count, unspecified; Z79.899 Other long term (current) drug therapy; I10 Essential (primary) hypertension; E66.01 Morbid (severe) obesity due to excess calories; Z68.41 Body mass index [BMI] 40.0-44.9, adult; R07.2 Precordial pain; F32.9 Major depressive disorder, single episode, unspecified; Z87.891 Personal history of nicotine dependence; E04.1 Nontoxic single thyroid nodule; Z88.2 Allergy status to sulfonamides; K58.9 Irritable bowel syndrome, unspecified